=== PATIENT | male | born 1940 | race African-American/Black ===

== ENCOUNTER 2019-08-14 07:32 | Inpatient (IN) | payer OTHER, MEDICAID ==
[~2019-08-14] VITALS: Ht 182.9 cm; Wt 116.6 kg
[2019-08-14] VITALS (7 sets, daily range): BP systolic 114–155; BP diastolic 33–77
[2019-08-14] MEDS ORDERED: ALBUTEROL (0.083%) 2.5MG/3ML NEB HHN STA (07:48)
[2019-08-14] MEDS ORDERED: METHYLPREDNISOLONE SOD SUCC 125 MG/2 ML VIAL IV STA (07:48)
[2019-08-14] MEDS ORDERED: IPRATROPIUM BROMIDE (0.02%) 0.5MG/2.5ML NEB HHN STA (07:48)
[2019-08-14 08:13] LABS: BG BASE EXCESS 2.8 mmol/L (-2.0-2.0); BG BILEVEL POS AIRWAY PRESSURE 15/5; BG CARBOXYHEMOGLOBIN 0.6 % (0.5-1.5); BG DEOXYHEMOGLOBIN 1.2 % (0.0-5.0); BG FRACTION INSPIRED OXYGEN 50; BG HCO3 ACT 30.7 mmol/L (22.0-26.0); BG METHEMOGLOBIN 0.2 % (0.0-1.5); BG OXYGEN SATURATION 98.8 % (92.0-98.5); BG PCO2 61.4 mmHg (35.0-45.0); BG PH 7.317 (7.350-7.450); BG PO2 148.8 mmHg (75.0-100.0); BG SAMPLE SITE RIGHT RADIAL; BG TOTAL HEMOGLOBIN 14.6 g/dL (12.0-18.0); BG VENT MODE MASK - BIPAP; BG VENT RATE 16 set
[2019-08-14 08:23] LABS: BASOPHILS % 1.6 % (0.0-2.0); EOSINOPHILS % 5.7 % (0.0-5.0); HEMATOCRIT. 45.3 % (42.0-52.0); LYMPHOCYTES % 30.5 % (20.0-50.0); MEAN CORPUSCULAR HEMOGLOBIN 31.7 pg (28.0-32.0); MEAN CORPUSCULAR VOLUME 95.8 fL (80.0-94.0); MEAN PLATELET VOLUME 9.5 fl (7.4-10.4); MONOCYTES % 9.1 % (2.0-8.0); NEUTROPHILS % 53.1 % (40.0-76.0); PLATELET 192 x1000/uL (130-400); RED BLOOD CELL COUNT 4.73 mill/uL (4.7-6.1); RED CELL DISTRIBUTION WIDTH 14.6 % (11.6-14.6)
[2019-08-14 08:28] LABS: CHLORIDE 107 mEq/L (98-107)
[2019-08-14] MEDS ORDERED: MAGNESIUM 2 G PREMIX 50 ML IV STA (09:06)
[2019-08-14] MEDS ORDERED: DIPHENHYDRAMINE 50MG/ML VIAL IV PRN (11:15)
[2019-08-14] MEDS ORDERED: CLONIDINE 0.1MG TABLET PO PRN (11:15)
[2019-08-14] MEDS ORDERED: ACETAMINOPHEN 325MG TABLET PO PRN (11:15)
[2019-08-14] MEDS ORDERED: IPRATROPIUM/ALBUTEROL 0.5-3(2.5)MG/3ML NEB HHN PRN ×2 (11:15→14:00)
[2019-08-14] MEDS ORDERED: ONDANSETRON HCL 4MG/2ML INJ IV PRN (11:15)
[2019-08-14 12:14] LABS: PHOSPHORUS 3.7 mg/dL (2.5-4.9)
[2019-08-14] MEDS: METHYLPREDNISOLONE SOD SUCC 125 MG/2 ML VIAL IV SCH ×2 (12:32→19:09)
[2019-08-14] MEDS: ENOXAPARIN 40MG/0.4ML SYR SUBCUT SCH (12:33)
[2019-08-14] MEDS ORDERED: FUROSEMIDE 40MG/4ML VIAL IVP NR (13:45)
[2019-08-14] MEDS: AMLODIPINE 5MG TABLET PO SCH (15:55)
[2019-08-14] MEDS ORDERED: DEXTROSE 50% WATER 50ML SYRINGE IV PRN (16:15)
[2019-08-14] MEDS: BLOOD SUGAR DIAGNOSTIC STRIP TEST SCH ×2 (17:30→21:45)
[2019-08-14] MEDS: INSULIN LISPRO 100 UNITS/ML SUBCUT SCH ×2 (19:10→21:57)
[2019-08-14] MEDS: IPRATROPIUM/ALBUTEROL 0.5-3(2.5)MG/3ML NEB HHN SCH (20:49)
[2019-08-14] MEDS: GUAIFENESIN 200MG/10ML SUGAR FREE UDC PO PRN (22:27)
[2019-08-15] VITALS (16 sets, daily range): BP systolic 98–156; BP diastolic 45–108
[2019-08-15] MEDS: IPRATROPIUM/ALBUTEROL 0.5-3(2.5)MG/3ML NEB HHN SCH ×6 (00:29→20:41)
[2019-08-15] MEDS: ACETYLCYSTEINE 100MG/ML 10% VIAL 4ML INH SCH ×4 (00:30→20:41)
[2019-08-15] MEDS: METHYLPREDNISOLONE SOD SUCC 125 MG/2 ML VIAL IV SCH ×4 (00:37→17:26)
[2019-08-15 02:53] LABS: CLARITY URINE CLEAR (CLEAR); COLOR URINE YELLOW (YELLOW); KETONES URINE TRACE (NEGATIVE); LEUKOCYTE ESTERASE URINE NEGATIVE (NEGATIVE); NITRITE URINE NEGATIVE (NEGATIVE); OCCULT BLOOD URINE NEGATIVE (NEGATIVE); PH URINE 5.5 (4.5-8.0); PROTEIN URINE NEGATIVE (NEGATIVE); SPECIFIC GRAVITY URINE 1.027 (1.005-1.030); UROBILINOGEN URINE 0.2 E.U./dL (0.2-1.0)
[2019-08-15 03:04] LABS: *AMPHETAMINES SCREEN URINE NEGATIVE (NEGATIVE); *BARBITURATES SCREEN URINE NEGATIVE (NEGATIVE); *BENZODIAZEPINES SCREEN URINE NEGATIVE (NEGATIVE)
[2019-08-15 03:05] LABS: *COCAINE SCREEN URINE NEGATIVE (NEGATIVE); CANNABINOID URINE SCREEN NEGATIVE (NEGATIVE); METHADONE URINE SCREEN NEGATIVE (NEGATIVE); OPIATES URINE SCREEN NEGATIVE (NEGATIVE); PHENCYCLIDINE URINE SCREEN NEGATIVE (NEGATIVE)
[2019-08-15] MEDS: GUAIFENESIN 200MG/10ML SUGAR FREE UDC PO PRN ×2 (05:05→11:57)
[2019-08-15] MEDS: BLOOD SUGAR DIAGNOSTIC STRIP TEST SCH ×4 (06:31→21:00)
[2019-08-15 07:00] LABS: BASOPHILS % 0.1 % (0.0-2.0); HEMATOCRIT. 41.1 % (42.0-52.0); HEMOGLOBIN. 13.7 g/dL (14.0-18.0); LYMPHOCYTES % 10.6 % (20.0-50.0); MEAN CORPUSCULAR HEMOGLOBIN 31.6 pg (28.0-32.0); MEAN CORPUSCULAR VOLUME 94.8 fL (80.0-94.0); MEAN PLATELET VOLUME 9.4 fl (7.4-10.4); MONOCYTES % 1.5 % (2.0-8.0); NEUTROPHILS % 87.8 % (40.0-76.0); PLATELET 182 x1000/uL (130-400); RED BLOOD CELL COUNT 4.34 mill/uL (4.7-6.1); RED CELL DISTRIBUTION WIDTH 14.4 % (11.6-14.6)
[2019-08-15 07:02] LABS: CHLORIDE 107 mEq/L (98-107)
[2019-08-15 07:28] LABS: LDL CHOLESTEROL 121 mg/dL (5-100)
[2019-08-15] MEDS: INSULIN LISPRO 100 UNITS/ML SUBCUT SCH ×4 (07:28→21:00)
[2019-08-15 07:31] LABS: HDL CHOLESTEROL 76 mg/dL (40-59)
[2019-08-15] MEDS ORDERED: ASPIRIN 81MG TABLET PO SCH (09:00)
[2019-08-15] MEDS: AMLODIPINE 5MG TABLET PO SCH (09:08)
[2019-08-15 09:26] LABS: BG BASE EXCESS -3.4 mmol/L (-2.0-2.0); BG CARBOXYHEMOGLOBIN 0.1 % (0.5-1.5); BG DEOXYHEMOGLOBIN 6.9 % (0.0-5.0); BG FRACTION INSPIRED OXYGEN 24; BG HCO3 ACT 22.1 mmol/L (22.0-26.0); BG METHEMOGLOBIN 0.2 % (0.0-1.5); BG OXYGEN SATURATION 93.1 % (92.0-98.5); BG OXYHEMOGLOBIN 92.8 % (94.0-97.0); BG PCO2 41.7 mmHg (35.0-45.0); BG PH 7.343 (7.350-7.450); BG PO2 67.9 mmHg (75.0-100.0); BG SAMPLE SITE RIGHT BRACHIAL; BG TOTAL HEMOGLOBIN 14.2 g/dL (12.0-18.0); BG VENT MODE NASAL CANNULA
[2019-08-15] MEDS: ENOXAPARIN 40MG/0.4ML SYR SUBCUT SCH (11:56)
[2019-08-15] MEDS ORDERED: GUAIFENESIN-DM 200MG-20MG/10ML UDC PO PRN (16:15)
[2019-08-15] MEDS ORDERED: ENOXAPARIN 30MG/0.3ML SYR SUBCUT SCH (21:00)
== END 2019-08-15 23:59 | disposition short-term general hospital (02) | DRG 189 ==
LOC: ER 07:32 → 5EST 10:22 → EDBEDREQSVC 10:28 → EDBEDREQ 10:28 → EDBEDREQTM 10:28 → ENRESERV 10:37
PROVIDERS: ADMIT Internal Medicine; ATTEND Internal Medicine
DX: J96.00 Acute respiratory failure, unspecified whether with hypoxia or hypercapnia (principal); I50.31 Acute diastolic (congestive) heart failure; J44.1 Chronic obstructive pulmonary disease with (acute) exacerbation; I42.9 Cardiomyopathy, unspecified; I11.0 Hypertensive heart disease with heart failure; N40.0 Benign prostatic hyperplasia without lower urinary tract symptoms; E87.5 Hyperkalemia; E78.5 Hyperlipidemia, unspecified; Z95.0 Presence of cardiac pacemaker; Z90.49 Acquired absence of other specified parts of digestive tract; Z99.81 Dependence on supplemental oxygen; Z87.891 Personal history of nicotine dependence; Z79.51 Long term (current) use of inhaled steroids
CPT/HCPCS: 36415; 36600; 71045; 80048; 80053; 80061; 80305; 81003; 82375; 82805; 82962; 83036; 83735; 83880; 84100; 84439; 84443; 84484; 85025; 93005; 93306; 93970; 99291; J1200; J1650; J1815; J1940; J2930; J3475; J7608

== ENCOUNTER 2022-07-28 04:58 | Emergency (ER) | payer OTHER, MEDICAID ==
[~2022-07-28] VITALS: Ht 177.8 cm; Wt 113.0 kg
[2022-07-28 06:12] LABS: BASOPHILS % 0.7 % (0.0-2.0); EOSINOPHILS % 1.4 % (0.0-5.0); HEMATOCRIT. 42.4 % (42.0-52.0); HEMOGLOBIN. 14.5 g/dL (14.0-18.0); LYMPHOCYTES % 31.3 % (20.0-50.0); MEAN CORPUSCULAR VOLUME 93.6 fL (80.0-94.0); MEAN PLATELET VOLUME 8.9 fl (7.4-10.4); MONOCYTES % 9.9 % (2.0-8.0); NEUTROPHILS % 56.7 % (40.0-76.0); PLATELET 195 x1000/uL (130-400); RED BLOOD CELL COUNT 4.53 mill/uL (4.7-6.1); RED CELL DISTRIBUTION WIDTH 13.7 % (11.6-14.6)
[2022-07-28 06:21] LABS: CHLORIDE 106 mEq/L (98-107)
[2022-07-28 06:31] LABS: INR 1.3; PROTHROMBIN TIME 13.5 sec (9.6-11.0)
[2022-07-28] MEDS ORDERED: LACTULOSE 20G/30ML UDC PO ONE (07:15)
[2022-07-28] MEDS ORDERED: NA PHOS,M-B/NA PHOS,DI-BA ENEMA 118ML PR ONE (07:15)
[2022-07-28] MEDS ORDERED: KETOROLAC 30MG/ML VIAL IV ONE (07:15)
[2022-07-28 11:29] VITALS: BP 143/63
== END 2022-07-28 11:48 | disposition short-term general hospital (02) ==
LOC: ER 05:23
DX: K56.41 Fecal impaction (principal); K62.5 Hemorrhage of anus and rectum; I11.0 Hypertensive heart disease with heart failure; I50.9 Heart failure, unspecified; I25.10 Atherosclerotic heart disease of native coronary artery without angina pectoris; J44.9 Chronic obstructive pulmonary disease, unspecified; Z95.0 Presence of cardiac pacemaker
CPT/HCPCS: 36415; 74176; 80053; 83690; 85025; 85610; 86850; 86900; 86901; 96374; 99285; J1885

== ENCOUNTER 2024-03-22 13:34 | Inpatient (IN) | payer OTHER, MEDICAID, MEDICARE ==
[~2024-03-22] VITALS: Ht 182.9 cm; Wt 110.2 kg
[2024-03-22 16:02] LABS: HEMATOCRIT. 45.2 % (42.0-52.0); HEMOGLOBIN. 14.8 g/dL (14.0-18.0); MEAN CORPUSCULAR HGB CONC 32.6 g/dL (31.0-37.0); MEAN CORPUSCULAR VOLUME 98.1 fL (80.0-94.0); MEAN PLATELET VOLUME 7.9 fl (7.4-10.4); PLATELET 184 x1000/uL (130-400); RED BLOOD CELL COUNT 4.61 mill/uL (4.7-6.1); RED CELL DISTRIBUTION WIDTH 14.6 % (11.6-14.6); WHITE BLOOD COUNT 8.6 x1000/uL (4.5-11.0)
[2024-03-22 16:08] LABS: CHLORIDE 98 mEq/L (98-107); POTASSIUM 4.2 mEq/L (3.5-5.1); SODIUM 140 mEq/L (136-145)
[2024-03-22 16:09] LABS: CALCIUM 10.4 mg/dL (8.7-10.4); CARBON DIOXIDE 39 mEq/L (21-32)
[2024-03-22 16:13] LABS: DIFFERENTIAL COMMENT 1
[2024-03-22 16:14] LABS: CREATININE 1.2 mg/dL (0.6-1.3); GLUCOSE 99 mg/dL (70-105); UREA NITROGEN BLOOD 22 mg/dL (9-23)
[2024-03-22 16:16] LABS: ALANINE AMINOTRANSFERASE 19 IU/L (10-49); ALBUMIN 3.8 g/dL (3.2-4.8); ASPARTATE AMINOTRANSFERASE 21 IU/L (<34); BILIRUBIN DIRECT 0.1 mg/dL (<=3.0); BILIRUBIN TOTAL 0.4 mg/dL (0.1-1.0)
[2024-03-22 16:17] LABS: PROTEIN TOTAL 6.9 g/dL (6.0-8.3)
[2024-03-22 16:26] LABS: TROPONIN I HIGH SENSITIVITY 179 ng/L (3.0-53)
[2024-03-22 16:44] LABS: PLATELET ESTIMATE NORMAL
[2024-03-22] MEDS ORDERED: ACETAMINOPHEN 650MG/20.3ML UDC GT PRN ×2 (18:15)
[2024-03-22] MEDS ORDERED: GUAIFENESIN 200MG/10ML SUGAR FREE UDC PO PRN (18:15)
[2024-03-22] MEDS ORDERED: NITROGLYCERIN 0.4MG TABLET SL SL PRN (18:15)
[2024-03-22] MEDS ORDERED: DOCUSATE SODIUM 100MG CAPSULE PO PRN (18:15)
[2024-03-22] MEDS ORDERED: CLONIDINE 0.1MG TABLET PO PRN (18:15)
[2024-03-22] MEDS ORDERED: IPRATROPIUM/ALBUTEROL 0.5-3(2.5)MG/3ML NEB HHN PRN (18:15)
[2024-03-22] MEDS ORDERED: MAGNESIUM/ALUMINUM HYDROXIDE/SIMETHICONE 30ML UDC PO PRN (18:15)
[2024-03-22] MEDS ORDERED: ONDANSETRON HCL 4MG/2ML INJ IV PRN (18:15)
[2024-03-22] MEDS ORDERED: NALOXONE HCL 0.4MG/ML VIAL IV PRN (19:15)
[2024-03-22 20:00] VITALS: BP 174/56; RESP 18; TEMP 36.72516; O2SAT 62
[2024-03-22] MEDS: VANCOMYCIN 2,000 MG in DEXT 5% WATER 500 ML IV NR (20:32)
[2024-03-22] MEDS: FUROSEMIDE 40MG/4ML VIAL IVP SCH (21:09)
[2024-03-22] MEDS: METOPROLOL TARTRATE 25MG TABLET PO SCH (21:09)
[2024-03-22] MEDS: ENOXAPARIN 30MG/0.3ML SYR SUBCUT SCH (21:24)
[2024-03-22 22:00] VITALS: RESP 16; TEMP 36.44736
[2024-03-22] MEDS: PIPERACILLIN/TAZO 3.375G/50ML 50 ML IV SCH (22:00)
[2024-03-23] VITALS (8 sets, daily range): BP systolic 101–151; BP diastolic 50–94; PULSE 60–69; RESP 18–20; TEMP 35.5584–36.9474; O2SAT 94–98
[2024-03-23 02:04] LABS: CREATINE KINASE 39 IU/L (46-171)
[2024-03-23 02:48] LABS: TROPONIN I HIGH SENSITIVITY 187 ng/L (3.0-53)
[2024-03-23 07:38] LABS: HEMATOCRIT. 42.8 % (42.0-52.0); HEMOGLOBIN. 13.7 g/dL (14.0-18.0); MEAN CORPUSCULAR HEMOGLOBIN 31.6 pg (28.0-32.0); MEAN CORPUSCULAR HGB CONC 32.1 g/dL (31.0-37.0); MEAN CORPUSCULAR VOLUME 98.7 fL (80.0-94.0); MEAN PLATELET VOLUME 8.1 fl (7.4-10.4); PLATELET 170 x1000/uL (130-400); RED BLOOD CELL COUNT 4.33 mill/uL (4.7-6.1); RED CELL DISTRIBUTION WIDTH 14.7 % (11.6-14.6); WHITE BLOOD COUNT 6.3 x1000/uL (4.5-11.0)
[2024-03-23 07:40] LABS: CHLORIDE 89 mEq/L (98-107); POTASSIUM 4.5 mEq/L (3.5-5.1); SODIUM 135 mEq/L (136-145)
[2024-03-23 07:41] LABS: CARBON DIOXIDE 37 mEq/L (21-32)
[2024-03-23 07:42] LABS: CALCIUM 9.4 mg/dL (8.7-10.4)
[2024-03-23 07:45] LABS: CREATINE KINASE 35 IU/L (46-171)
[2024-03-23 07:46] LABS: CREATININE 1.2 mg/dL (0.6-1.3)
[2024-03-23 07:47] LABS: LDL CHOLESTEROL 81 mg/dL (5-100); TRIGLYCERIDE 74 mg/dL (0-150); UREA NITROGEN BLOOD 18 mg/dL (9-23)
[2024-03-23 07:48] LABS: CHOLESTEROL 144 mg/dL (<200); HDL CHOLESTEROL 43 mg/dL (>55)
[2024-03-23 07:50] LABS: T4 FREE 1.19 ng/dL (0.89-1.76); THYROID STIMULATING HORMONE 0.68 uIU/mL (0.55-4.78)
[2024-03-23 07:54] LABS: GLUCOSE 346 mg/dL (70-105)
[2024-03-23] MEDS ORDERED: DEXTROSE 50% WATER 50ML SYRINGE IV PRN (08:00)
[2024-03-23] MEDS: HYDROCODONE/ACETAMINOPHEN 5/325MG TABLET PO PRN (08:20)
[2024-03-23 08:52] LABS: DIFFERENTIAL COMMENT 1
[2024-03-23] MEDS ORDERED: ASPIRIN 81MG TABLET PO ONE (09:00)
[2024-03-23] MEDS: AMLODIPINE 10MG TABLET PO SCH (10:00)
[2024-03-23] MEDS: LISINOPRIL 5MG TABLET PO SCH (10:01)
[2024-03-23] MEDS: ASPIRIN 81MG EC TABLET PO SCH (10:01)
[2024-03-23] MEDS: SPIRONOLACTONE 25MG TABLET PO SCH (10:01)
[2024-03-23] MEDS: BLOOD SUGAR DIAGNOSTIC STRIP TEST SCH (12:10)
[2024-03-23] MEDS: INSULIN LISPRO 100 UNITS/ML SUBCUT SCH (12:40)
[2024-03-23] MEDS ORDERED: CARV25TA47 PO (14:20)
[2024-03-23] MEDS ORDERED: LISI40TA13 PO (14:20)
[2024-03-23] MEDS: LISINOPRIL 40MG TABLET PO SCH (17:12)
[2024-03-23 17:43] LABS: TROPONIN I HIGH SENSITIVITY 180 ng/L (3.0-53)
[2024-03-23] MEDS ORDERED: VANCOMYCIN 1.25GM/250ML IV SCH (20:00)
[2024-03-23 21:00] LABS: TROPONIN I HIGH SENSITIVITY 181 ng/L (3.0-53)
[2024-03-23 21:59] LABS: PLATELET ESTIMATE NORMAL
[2024-03-27] MEDS ORDERED: INFLUENZA VACCINE 05/PF 0.5 ML SYRINGE IM ONE (09:00)
== END 2024-03-23 23:00 | disposition short-term general hospital (02) | DRG 291 ==
LOC: ER 13:34 → EDBEDREQ 14:07 → 5WST 19:52 → 8WST 03-23 09:35
PROVIDERS: ADMIT Hospitalist; ATTEND Hospitalist
DX: I11.0 Hypertensive heart disease with heart failure (principal); I50.43 Acute on chronic combined systolic (congestive) and diastolic (congestive) heart failure; L03.115 Cellulitis of right lower limb; J96.10 Chronic respiratory failure, unspecified whether with hypoxia or hypercapnia; I25.10 Atherosclerotic heart disease of native coronary artery without angina pectoris; J44.9 Chronic obstructive pulmonary disease, unspecified; E11.9 Type 2 diabetes mellitus without complications; E66.9 Obesity, unspecified; Z68.33 Body mass index [BMI] 33.0-33.9, adult; I87.8 Other specified disorders of veins; L30.9 Dermatitis, unspecified; G47.33 Obstructive sleep apnea (adult) (pediatric); Z79.899 Other long term (current) drug therapy; Z87.891 Personal history of nicotine dependence; Z95.0 Presence of cardiac pacemaker; Z99.81 Dependence on supplemental oxygen; I25.2 Old myocardial infarction
CPT/HCPCS: 36415; 71045; 80048; 80061; 80076; 82550; 82962; 83036; 83605; 83880; 84145; 84439; 84443; 84484; 85025; 93005; 99291; J1650; J1940; J2543; J3370; J7060